=== PATIENT | male | born 1955 | race Caucasian/White ===

== ENCOUNTER 2019-06-06 19:26 | Inpatient (IN) | payer SELFPAY ==
[2019-06-06] MEDS ORDERED: Fentanyl 100 MCG/2 ML VIAL ONE (19:57)
[2019-06-06] MEDS ORDERED: Adacel (T-DAP) 0.5 ML SYRINGE ONE (19:57)
[2019-06-06 20:04] LABS: Bilirubin Negative (Negative); Blood, Urine Negative (Negative); Clarity Clear (Clear); Glucose, Urine (Dipstick) Normal (Negative); Leukocyte Negative Leu/uL (Negative); Nitrite Negative (Negative); Protein, Urine (Dipstick) Negative (Neg-Trace); Urobilinogen Normal mg/dL (Less than 2)
[2019-06-06 20:16] LABS: #Basophils 0.1 thou/uL (0.0-0.2); #Eosinphils 0.1 thou/uL (0.0-0.7); #Lymphocytes 1.9 thou/uL (1.20-3.40); #Monocytes 0.9 thou/uL (0.11-0.59); #Neutrophils 5.8 thou/uL (1.40-6.50); %Basophils 1.4 % (0.0-1.0); %Eosinophils 1.3 % (0.0-10.0); %Lymphocytes 21.6 % (21.0-51.0); %Monocytes 9.8 % (0.0-10.0); %Neutrophils 65.9 % (42.0-75.0); Hemoglobin 14.2 g/dL (14.0-18.0); Mean Corpuscular HGB CONC 33.9 g/dL (32.0-36.0); Mean Corpuscular Hemoglobin 34.7 pg (27.0-31.0); Mean Platelet Volume 7.6 fL (7.4-10.4); Platelet Count 173 thou/uL (130-400); RBC Distribution Width 13.1 % (11.5-14.5); Red Blood Cell (RBC) Count 4.09 mill/uL (4.70-6.10); White Blood Cell (WBC) Count 8.8 thou/uL (4.8-10.8)
[2019-06-06 20:25] LABS: PTT 26.7 SEC (22.9-36.1); Prothrombin Time 13.1 SEC (12.0-14.7)
--- NOTE | 2019-06-06 20:26 | RAD ---
EXAM: XR Hip Lt 2-3 View PROVIDED CLINICAL HISTORY: Pain status post injury COMPARISON: None FINDINGS: There is a displaced and angulated intertrochanteric and subtrochanteric left proximal femoral fractu re. No additional fracture is evident. Vascular calcification is seen. Left hip joint space appears maintained. IMPRESSION: Displaced and angulated left proximal femoral fracture.
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
--- NOTE | 2019-06-06 20:28 | RAD ---
EXAM: XR Pelvis AP STANDARD PROVIDED CLINICAL HISTORY: Pain status post injury COMPARISON: None FINDINGS: Comminuted intertrochanteric and displaced/angulated subtrochanteric fracture of the left proximal fe mur. No additional fracture is evident. Vascular calcification is seen. Joint spaces appear maintained. Alignment appears otherwise anatomic. IMPRESSION: Displaced and angulated left proximal femoral fracture.
[2019-06-06 20:40] LABS: ALT (SGPT) 85 U/L (8-55); AST (SGOT) 137 U/L (5-34); Albumin 4.3 g/dL (3.4-4.8); Alcohol 227 mg/dL (Less than 10); Alkaline Phosphatase 67 U/L (40-110); Anion Gap 16 mmol/L (10-20); BUN (Urea Nitrogen) 7 mg/dL (8.4-25.7); Bilirubin, Total 0.4 mg/dL (0.2-1.2); Calc. Creatinine Clearance 0 mL/min (70-130); Calcium 8.9 mg/dL (7.8-10.44); Carbon Dioxide 22 mmol/L (23-31); Chloride 102 mmol/L (98-107); Estimated GFR-MDRD Greater than 90; Globulin 3.9 g/dL (2.4-3.5); Glucose 96 mg/dL (80-115); Lipase 19 U/L (8-78); Potassium 4.2 mmol/L (3.5-5.1); Protein, Total 8.2 g/dL (5.8-8.1); Sodium 136 mmol/L (136-145)
--- NOTE | 2019-06-06 20:51 | CT ---
Exam: CT brain PROVIDED CLINICAL HISTORY: Trauma COMPARISON: None FINDINGS: The ventricular system is normal in size and morphology. No evidence for intracranial hemorrhage or mass effect. The extracranial soft tissues and osseous structures demonstrate no evidence for an acute abnormality. IMPRESSION: No evidence for intracranial hemorrhage or mass effect.
--- NOTE | 2019-06-06 20:53 | CT ---
EXAM: CT cervical spine PROVIDED CLINICAL HISTORY: Trauma COMPARISON: None FINDINGS: No evidence for fracture or traumatic subluxation. No prevertebral soft tissue swelling apparent. Ca rotid calcifications are seen. IMPRESSION: No evidence for fracture or traumatic subluxation.
[2019-06-06] MEDS ORDERED: Ondansetron PF 4 MG/2 ML Vial IVP PRN (21:27)
[2019-06-06] MEDS ORDERED: Dextrose 5% in Water 1,000 ML IV PRN (21:27)
[2019-06-06] MEDS ORDERED: Dextrose 50% Abboject 50 ML SYRINGE SLOW IVP PRN (21:27)
[2019-06-06] MEDS ORDERED: Morphine 4 MG/ML VIAL ONE (21:27)
[2019-06-06] MEDS ORDERED: hydrALAZINE 20 MG/ML VIAL SLOW IVP PRN (21:27)
[2019-06-06] MEDS ORDERED: traMADol HCl 50 MG TAB PO PRN (21:30)
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
[2019-06-06] MEDS: Ibuprofen 200 MG TAB PO SCH (23:04)
[2019-06-06] MEDS: Oxazepam 10 MG CAP PO SCH (23:04)
[2019-06-06 23:11] VITALS: BMI 24.1
[2019-06-06] MEDS: Acetaminophen 500 MG TAB PO SCH (23:21)
[2019-06-06] MEDS: Sodium Chloride 0.9% 1,000 ML IV SCH (23:21)
[2019-06-06] MEDS: Morphine 4 MG/ML VIAL SLOW IVP PRN (23:29)
[2019-06-06 23:54] LABS: Lactic Acid 2.4 mmol/L (0.5-2.2)
[2019-06-07] MEDS: traMADol HCl 50 MG TAB PO PRN ×2 (01:42→18:29)
[2019-06-07 02:33] LABS: Amphetamine Not Detected (NotDetected); Barbiturates Screen Not Detected (NotDetected); Benzodiazepine Screen Detected (NotDetected); Cocaine Metabolite Screen Not Detected (NotDetected); Medtox Control Line Valid? VALID (VALID); Medtox Reader # READER 4; Methadone Not Detected (NotDetected); Methamphetamine Not Detected (NotDetected); Opiate Screen Detected (NotDetected); Oxycodone Screen Not Detected (NotDetected); Phencyclidine (PCP) Not Detected (NotDetected); THC/Cannabinoid Screen Not Detected (NotDetected); Tricyclic Screen Not Detected (NotDetected)
[2019-06-07] MEDS: Morphine 4 MG/ML VIAL SLOW IVP PRN ×2 (03:36→06:03)
[2019-06-07 05:15] LABS: #Basophils 0.1 thou/uL (0.0-0.2); #Eosinphils 0.1 thou/uL (0.0-0.7); #Lymphocytes 1.7 thou/uL (1.20-3.40); #Monocytes 1.1 thou/uL (0.11-0.59); #Neutrophils 5.9 thou/uL (1.40-6.50); %Basophils 0.8 % (0.0-1.0); %Eosinophils 1.3 % (0.0-10.0); %Lymphocytes 19.4 % (21.0-51.0); %Monocytes 12.1 % (0.0-10.0); %Neutrophils 66.5 % (42.0-75.0); Hemoglobin 12.7 g/dL (14.0-18.0); Mean Corpuscular HGB CONC 35.2 g/dL (32.0-36.0); Mean Corpuscular Hemoglobin 35.8 pg (27.0-31.0); Mean Platelet Volume 7.7 fL (7.4-10.4); Platelet Count 149 thou/uL (130-400); RBC Distribution Width 13.4 % (11.5-14.5); Red Blood Cell (RBC) Count 3.53 mill/uL (4.70-6.10); White Blood Cell (WBC) Count 8.8 thou/uL (4.8-10.8)
[2019-06-07 05:32] LABS: Anion Gap 14 mmol/L (10-20); BUN (Urea Nitrogen) 5 mg/dL (8.4-25.7); Calc. Creatinine Clearance 120 mL/min (70-130); Calcium 8.3 mg/dL (7.8-10.44); Carbon Dioxide 22 mmol/L (23-31); Chloride 103 mmol/L (98-107); Estimated GFR-MDRD Greater than 90; Glucose 87 mg/dL (80-115); Magnesium 1.6 mg/dL (1.6-2.6); Potassium 3.4 mmol/L (3.5-5.1); Sodium 136 mmol/L (136-145)
[2019-06-07] MEDS: Cyclobenzaprine 10 MG TAB PO PRN (06:03)
[2019-06-07] MEDS: Oxazepam 10 MG CAP PO SCH ×3 (06:03→21:14)
[2019-06-07] MEDS: Acetaminophen 500 MG TAB PO SCH ×3 (06:03→18:28)
[2019-06-07] MEDS: Ibuprofen 200 MG TAB PO SCH ×3 (06:03→21:13)
[2019-06-07] MEDS: Sodium Chloride 0.9% 1,000 ML IV SCH ×3 (06:12→15:53)
[2019-06-07] MEDS ORDERED: CEFAZOLIN 2 GM in Premix Bag 1 BAG IVPB SCH (07:30)
[2019-06-07] MEDS ORDERED: Potassium Chloride 20 MEQ in Premix Bag 1 BAG IVPB SCH (07:30)
[2019-06-07] MEDS: Famotidine/PF 20 mg/2ml Vial SLOW IVP SCH ×2 (08:40→21:13)
[2019-06-07] MEDS ORDERED: FLU VACC QS2019-20(6MOS UP)/PF 60 MCG/0.5 ML SYRINGE IM ONE (09:00)
[2019-06-07] MEDS ORDERED: Magnesium 2 GM/50 ML 2 GM in Premix Bag 1 BAG IVPB SCH (09:45)
[2019-06-07] MEDS ORDERED: Ondansetron PF 4 MG/2 ML Vial ONE (10:00)
[2019-06-07] MEDS ORDERED: EPHEDRINE 25 MG/5 ML SYRINGE ONE (10:00)
[2019-06-07] MEDS ORDERED: Dexamethasone 20 MG/5 ML VIAL ONE (10:00)
[2019-06-07] MEDS ORDERED: PHENYLEPHRINE-NS 100 MCG/ML 10 ML SYRINGE ONE (10:00)
[2019-06-07] MEDS: Polyethylene Glycol 3350 17 GM Packet PO SCH (10:53)
[2019-06-07] MEDS ORDERED: Fentanyl 100 MCG/2 ML VIAL ONE (14:05)
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
[2019-06-07] MEDS ORDERED: Propofol 500 MG/50 ML VIAL ONE (14:58)
[2019-06-07] MEDS ORDERED: Dexmedetomidine 200 MCG/2 ML VIAL ONE (15:29)
[2019-06-07] MEDS ORDERED: Ondansetron HCl/PF 4 MG/2 ML Vial IVP PRN (15:34)
[2019-06-07] MEDS ORDERED: Promethazine HCl 25 MG/ML VIAL SLOW IVP PRN (15:34)
[2019-06-07] MEDS ORDERED: HYDROmorphone 2 MG/ML VIAL SLOW IVP PRN (15:34)
[2019-06-07] MEDS ORDERED: Ketorolac Tromethamine 30 MG/ML VIAL IVP PRN (15:34)
[2019-06-07] MEDS: Senokot S 8.6-50 MG TAB PO SCH ×2 (15:52→21:13)
[2019-06-07] MEDS: Folic Acid 1 MG TAB PO SCH (15:52)
[2019-06-07] MEDS: Multivitamin W/ Minerals 1 TAB PO SCH (15:52)
[2019-06-07] MEDS: Thiamine 100 MG TAB PO SCH (15:52)
--- NOTE | 2019-06-07 18:01 | RAD ---
EXAM: LEFT HIP TWO VIEWS: History: Previously noted comminuted intertrochanteric and subtrochanteric fracture of the left femur is stabi lized with hip nail with improved position and alignment. IMPRESSION: Improved position and alignment of the comminuted intertrochanteric and subtrochanteric fracture of t he left femur, stabilized with hip nail. POS: RRE
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
[2019-06-07] MEDS: CEFAZOLIN 2 GM in Premix Bag 1 BAG IVPB SCH (21:12)
[2019-06-08] MEDS: Acetaminophen 500 MG TAB PO SCH ×5 (00:33→23:33)
[2019-06-08] MEDS: traMADol HCl 50 MG TAB PO PRN ×2 (00:34→21:26)
[2019-06-08] MEDS: Sodium Chloride 0.9% 1,000 ML IV SCH ×3 (00:38→13:11)
[2019-06-08] MEDS: Ibuprofen 200 MG TAB PO SCH ×3 (05:01→21:24)
[2019-06-08] MEDS: CEFAZOLIN 2 GM in Premix Bag 1 BAG IVPB SCH (05:03)
[2019-06-08] MEDS: Oxazepam 10 MG CAP PO SCH ×3 (05:03→21:25)
[2019-06-08 07:56] LABS: Anion Gap 10 mmol/L (10-20); BUN (Urea Nitrogen) 8 mg/dL (8.4-25.7); Calc. Creatinine Clearance 108 mL/min (70-130); Calcium 8.2 mg/dL (7.8-10.44); Carbon Dioxide 24 mmol/L (23-31); Chloride 101 mmol/L (98-107); Estimated GFR-MDRD Greater than 90; Glucose 109 mg/dL (80-115); Magnesium 1.9 mg/dL (1.6-2.6); Phosphorus 3.6 mg/dL (2.3-4.7); Potassium 4.2 mmol/L (3.5-5.1); Sodium 131 mmol/L (136-145)
[2019-06-08] MEDS: Multivitamin W/ Minerals 1 TAB PO SCH (08:25)
[2019-06-08] MEDS: Famotidine/PF 20 mg/2ml Vial SLOW IVP SCH ×2 (08:25→21:29)
[2019-06-08] MEDS: Thiamine 100 MG TAB PO SCH (08:25)
[2019-06-08] MEDS: Senokot S 8.6-50 MG TAB PO SCH ×2 (08:25→21:25)
[2019-06-08] MEDS: Polyethylene Glycol 3350 17 GM Packet PO SCH (08:25)
[2019-06-08] MEDS: Folic Acid 1 MG TAB PO SCH (08:25)
[2019-06-08] MEDS: Cyclobenzaprine 10 MG TAB PO PRN (21:24)
[2019-06-08] MEDS: Enoxaparin Sodium 40 MG/0.4 ML SYRINGE SC SCH (21:27)
[2019-06-09] MEDS: Sodium Chloride 0.9% 1,000 ML IV SCH ×3 (01:10→16:10)
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
[2019-06-09] MEDS: Acetaminophen 500 MG TAB PO SCH ×4 (05:40→23:39)
[2019-06-09] MEDS: Ibuprofen 200 MG TAB PO SCH ×3 (05:41→22:08)
[2019-06-09] MEDS: Cyclobenzaprine 10 MG TAB PO PRN (05:41)
[2019-06-09] MEDS: Oxazepam 10 MG CAP PO SCH ×3 (05:41→22:08)
[2019-06-09] MEDS: Famotidine/PF 20 mg/2ml Vial SLOW IVP SCH (08:27)
[2019-06-09] MEDS: Senokot S 8.6-50 MG TAB PO SCH ×2 (08:27→20:10)
[2019-06-09] MEDS: Polyethylene Glycol 3350 17 GM Packet PO SCH (08:27)
[2019-06-09] MEDS: Multivitamin W/ Minerals 1 TAB PO SCH (08:28)
[2019-06-09] MEDS: Folic Acid 1 MG TAB PO SCH (08:28)
[2019-06-09] MEDS: Thiamine 100 MG TAB PO SCH (08:28)
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
[2019-06-09] MEDS: Famotidine 20 MG TAB PO SCH (20:09)
[2019-06-09] MEDS: Enoxaparin Sodium 40 MG/0.4 ML SYRINGE SC SCH (20:10)
[2019-06-09] MEDS ORDERED: Polyethylene Glycol 3350 17 GM Packet PO PRN (23:09)
[2019-06-09] MEDS ORDERED: Loperamide HCl 2 MG CAP PO PRN (23:09)
[2019-06-09] MEDS ORDERED: Senokot S 8.6-50 MG TAB PO PRN (23:09)
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
[2019-06-10] MEDS: Ibuprofen 200 MG TAB PO SCH ×3 (05:49→22:14)
[2019-06-10] MEDS: Acetaminophen 500 MG TAB PO SCH ×3 (05:49→17:45)
[2019-06-10] MEDS: Oxazepam 10 MG CAP PO SCH ×3 (05:49→22:14)
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
[2019-06-10] MEDS: Folic Acid 1 MG TAB PO SCH (08:42)
[2019-06-10] MEDS: Multivitamin W/ Minerals 1 TAB PO SCH (08:42)
[2019-06-10] MEDS: Famotidine 20 MG TAB PO SCH ×2 (08:42→20:14)
[2019-06-10] MEDS: Thiamine 100 MG TAB PO SCH (08:42)
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
[2019-06-10] MEDS: Enoxaparin Sodium 40 MG/0.4 ML SYRINGE SC SCH (20:14)
[2019-06-11] MEDS: Acetaminophen 500 MG TAB PO SCH ×3 (00:26→12:19)
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
[2019-06-11] MEDS: Oxazepam 10 MG CAP PO SCH ×2 (06:10→14:02)
[2019-06-11] MEDS: Ibuprofen 200 MG TAB PO SCH ×2 (06:10→13:56)
[2019-06-11] MEDS: Folic Acid 1 MG TAB PO SCH (09:20)
[2019-06-11] MEDS: Thiamine 100 MG TAB PO SCH (09:20)
[2019-06-11] MEDS: Multivitamin W/ Minerals 1 TAB PO SCH (09:20)
[2019-06-11 11:26] VITALS: BP 138/85; TEMP 97.4
[2019-06-11] MEDS: traMADol HCl 50 MG TAB PO PRN (13:56)
--- NOTE | 2019-06-12 14:04 | EKG ---
Test Reason : Blood Pressure : / mmHG Vent. Rate : 070 BPM Atrial Rate : 070 BPM P-R Int : 170 ms QRS Dur : 100 ms QT Int : 430 ms P-R-T Axes : 049 000 038 degrees QTc Int : 464 ms Normal sinus rhythm Possible Lateral infarct , age undetermined Inferior-posterior infarct , age undetermined Abnormal ECG Confirmed by MARIUSZ STARK DO ([id number]), multimedia editor RAMIRO VENTURA ([id number]) on 06/12/2019 2:04:25 PM Referred By: Confirmed By:MARIUSZ STARK DO
--- NOTE | 2019-06-14 09:25 | PQF ---
MARITZA OLSEN GARY PA -C [id number] CLINICAL DOCUMENTATION CLARIFICATION FORM: POST DISCHARGE Addendum to original discharge summary date: ____ Late entry note date: __ DATE: 06/14/2019 ATTN: IRAM OVIEDO PA-C Please exercise your independent, professional judgment in responding to the clarification form. Clinical indicators are provided on the bottom of this form for your review Please check appropriate box(s): [ X ] Hyponatremia please specify etiology, if known ____increased free water intake [ ] Hyponatremia due to SIADH (Syndrome of Inappropriate Secretion of Antidiuretic Hormone) [ ] Other diagnosis [ ] Unable to determine In addition, please specify: Present on Admission (POA): [ ] Yes [ X ] No [ ] Unable to determine CLINICAL INDICATORS - SIGNS / SYMPTOMS / LABS Sodium level 136 on 06/05, 136 on 06/06 and 131 on 06/07 - Documented in Lab results Elevated Lactic acid and acute alcohol intoxication - Documented in H&P on by Sudha Wood PA-C RISK FACTORS Left Proximal femur fracture - Documented in H&P on 06/05 by Sudha Wood PA-C status post IM fracture reduction - OP report TREATMENTS: patient receive 1L normal saline in ED - Documented in H&P on 06/05 by Sudha Wood PA-C Sodium Chloride 0.9% 1000ml IV - Documented in medication report (This form is maintained as a part of the permanent medical record) 2014 [employer] All Rights Reserved [email or web address] [phone] CHANTEL
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
== END 2019-06-11 13:40 | disposition home or self-care (01) | DRG 481 ==
LOC: ERS 19:26 → SJJU 21:30
PROVIDERS: ADMIT Surgery; ATTEND Surgery
PROC: 0QS736Z Reposition Left Upper Femur with Intramedullary Internal Fixation Device, Percutaneous Approach (ICD-10-PCS; principal; 2019-06-07)
DX: S72.142A Displaced intertrochanteric fracture of left femur, initial encounter for closed fracture (principal); E87.1 Hypo-osmolality and hyponatremia; E78.5 Hyperlipidemia, unspecified; I10 Essential (primary) hypertension; J45.909 Unspecified asthma, uncomplicated; F43.10 Post-traumatic stress disorder, unspecified; F31.9 Bipolar disorder, unspecified; F41.9 Anxiety disorder, unspecified; F17.210 Nicotine dependence, cigarettes, uncomplicated; E87.6 Hypokalemia; F10.129 Alcohol abuse with intoxication, unspecified; V19.9XXA Pedal cyclist (driver) (passenger) injured in unspecified traffic accident, initial encounter; I25.2 Old myocardial infarction
CPT/HCPCS: 36415; 70450; 71045; 72125; 72170; 76000; 80048; 80053; 80306; 80307; 81003; 83605; 83690; 83735; 84100; 85025; 85610; 85730; 86850; 86900; 86901; 90471; 90715; 93005; 94640; 96361; 96374; 96375; C1713; G0390; J0690; J1100; J1650; J2270; J2405; J2704; J3010; J3475; J3480; J7620; S0028